=== PATIENT | male | born 1990 | race Caucasian/White ===

== ENCOUNTER 2022-09-21 08:08 | Emergency (ER) | payer OTHER, BC ==
[~2022-09-21] VITALS: Ht 182.9 cm; Wt 72.6 kg
[2022-09-21] MEDS ORDERED: HYDROCODON-ACE1 EA10 PO (09:34)
[2022-09-21] MEDS ORDERED: METHOCARBAMOL750 MG PO (09:34)
[2022-09-21] MEDS ORDERED: IBU600 MG PO (09:34)
== END 2022-09-21 09:51 | disposition home or self-care (01) ==
LOC: ED 08:08
DX: S16.1XXA Strain of muscle, fascia and tendon at neck level, initial encounter (principal); S46.912A Strain of unspecified muscle, fascia and tendon at shoulder and upper arm level, left arm, initial encounter; V59.9XXA Occupant (driver) (passenger) of pick-up truck or van injured in unspecified traffic accident, initial encounter
CPT/HCPCS: 71045; 72125; 73030; 99284-25; A9270